=== PATIENT | female | born 1985 | race Caucasian/White ===

== ENCOUNTER 2016-10-13 07:34 | Day surgery (SDC) | payer OTHER ==
[~2016-10-13] VITALS: Ht 162.6 cm; Wt 117.9 kg
[~2016-10-13 07:34] MED LIST: ACYCLOVIR400 MG PO; ADVAIR 250/501 DISK IH; ADVIL,NUPRIN,M200 MG PO; BENTYL20 MG PO; CLARITIN10 M3 PO; DITROPAN5 MG PO; FLONASE ALLERG9.9 ML BOTH NARES; MICRONOR0.35 MG PO; MOTRIN800 MG PO; Motrin PO; NASAL SPRAY30 M4 BOTH NARES; PERCOCET 5/31 TABLET PO; PRILOSEC20 MG PO; PROAIR HFA8.5 GM IH; PROZAC10 MG PO; PROZAC20 MG PO; SINGULAIR10 MG PO; ZANTAC150 MG PO; ZOFRAN4 MG PO
[2016-10-13 08:09] VITALS: BP 128/65
[2016-10-13] MEDS ORDERED: COLACE100 MG PO (11:57)
[2016-10-13] MEDS ORDERED: PERCOCET 5/31 TABLET PO (11:57)
[2016-10-13 13:40] VITALS: BP 137/97
[2016-10-13] MEDS ORDERED: IBUPROFEN800 MG PO (14:31)
[2016-10-13 14:36] VITALS: BP 131/87
== END 2016-10-13 14:41 | disposition home or self-care (01) ==
LOC: SDC 07:34
PROC: 0FT44ZZ Resection of Gallbladder, Percutaneous Endoscopic Approach (ICD-10-PCS; principal; 2016-10-13)
DX: K80.10 Calculus of gallbladder with chronic cholecystitis without obstruction (principal); J45.909 Unspecified asthma, uncomplicated; Z87.891 Personal history of nicotine dependence; Z82.49 Family history of ischemic heart disease and other diseases of the circulatory system; Z82.5 Family history of asthma and other chronic lower respiratory diseases; Z68.42 Body mass index [BMI] 45.0-49.9, adult
CPT/HCPCS: 88304; J0131; J0330; J0690; J1100; J1170; J1885; J2405; J2710; J3010

== ENCOUNTER 2016-10-20 08:44 | Emergency (ER) | payer OTHER ==
[~2016-10-20] VITALS: Ht 162.6 cm; Wt 118.6 kg
[~2016-10-20 08:44] MED LIST changes: +COLACE100 MG PO; +IBUPROFEN800 MG PO
[2016-10-20 09:28] LABS: HEMATOCRIT 48.1 % (36.0-46.0); MCH 28.9 PG (29.0-34.0); MCHC 33.7 G/DL (30.0-36.0); MCV 85.7 FL (83-99); MEAN PLAT.VOLUME 11.3 uM^3 (9.5-12.4); PLATELET COUNT 225 K/uL (156-360); RBC DIS.WIDTH-SD 40.4 % (39-53); RED BLOOD COUNT 5.61 M/uL (3.80-5.20); WHITE BLOOD COUNT 7.4 K/uL (4.1-10.2)
[2016-10-20 09:38] LABS: CHLORIDE 107 mEq/L (99-109); POTASSIUM 3.8 mEq/L (3.7-5.4); SODIUM 139 mEq/L (136-147)
[2016-10-20 09:40] LABS: GLUCOSE 88 mg/dL (70-99)
[2016-10-20 09:41] LABS: ANION GAP 7 MEQ/L (2-14)
[2016-10-20 09:42] LABS: TOTAL BILIRUBIN 0.6 mg/dL (0.0-1.0)
[2016-10-20 09:44] LABS: ALKALINE PHOSPHATASE 74 IU/L (3-129); GFR ESTIMATE (CALCULATED) > 59 mL/min/
[2016-10-20 09:45] LABS: UREA NITROGEN (BUN) 9 mg/dL (9-23)
[2016-10-20 09:47] LABS: LIPASE 13 U/L (1.0-51.0)
[2016-10-20 09:53] LABS: QUANTITATIVE HCG < 4.0 MIU/ML
[2016-10-20 11:15] LABS: ADD MIUA? YES; BILIRUBIN NEGATIVE; BLOOD NEGATIVE; COLOR DK YELLOW ((YELLOW)); GLUCOSE (STRIP) NEGATIVE; KETONES NEGATIVE; LEUKOCYTES MODERATE; NITRITE NEGATIVE; PROTEIN (STRIP) TRACE; SPECIFIC GRAVITY 1.028 (1.000-1.030); UROBILINOGEN 0.2 MG/DL (0.2-1.0)
[2016-10-20 11:30] VITALS: BP 140/77
[2016-10-20 11:33] LABS: RED BLOOD CELLS NONE SEEN /HPF (0-5)
[2016-10-20 11:34] LABS: BACTERIA 1+ /HPF; CASTS NONE SEEN /LPF; CRYSTALS NONE SEEN; EPITHELIAL CELLS RARE /HPF; MUCUS NONE SEEN /LPF; UCUL ADDED? NO
== END 2016-10-20 11:30 | disposition home or self-care (01) ==
LOC: EME 08:44
DX: S29.012A Strain of muscle and tendon of back wall of thorax, initial encounter (principal); Z98.890 Other specified postprocedural states
CPT/HCPCS: 71020; 80053; 81003; 83690; 84702; 85027; 93005; 99281; 99284